=== PATIENT | male | born 1995 | race Caucasian/White ===

== ENCOUNTER 2017-07-12 16:11 | Outpatient (CLI) | payer OTHER | END 2017-07-12 16:12 | disposition home or self-care (01) | LOC: LABBT 16:11 | PROVIDERS: ATTEND Specialist | DX: Z01.818 Encounter for other preprocedural examination (principal); K40.20 Bilateral inguinal hernia, without obstruction or gangrene, not specified as recurrent ==

== ENCOUNTER 2017-07-14 09:42 | Day surgery (SDC) | payer OTHER ==
[2017-07-12 16:31] VITALS: BMI 29.5
--- NOTE | 2017-07-12 21:42 | HP ---
HISTORY OF PRESENT ILLNESS: A 21-year-old male patient who I saw on 06/18/2016 for bilateral inguin al hernias, recommended repair of them. Patient has membership, he goes gym. He has arranged [employer] to have these hernias repaired. He is worried exercising and working out in the interim. He de sires to repair this week. Plan is to repair these using mesh. He understands the risk of infectio n, bleeding, reoperation, recurrence of the hernia and understands the possibility of indurated cord structures due to the large nature of the hernias extending into the scrotum. He will need to wear a scrotal support and elevation postoperatively. He rides a motorcycle for transportation and real izes he will not be able to ride his motorcycle for a couple of weeks. 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 He understands the risks of infection, bleeding, reoperation, recurrence, and consents. TOBACCO: None. ALCOHOL: Rarely to none. MEDICATIONS: None routinely. PAST MEDICAL HISTORY: Noncontributory. PAST SURGICAL HISTORY: Noncontributory. REVIEW OF SYSTEMS: Ten point noncontributory. PHYSICAL EXAMINATION: VITAL SIGNS: A 232 pounds, 73 inches, 30 BMI, 138/80, 69, 99 degrees. HEENT: Unremarkable. LUNGS: Clear to auscultation. CARDIAC: Regular rate and rhythm without murmur or gallop. ABDOMEN: Soft, nontender. EXTREMITIES: Unremarkable. GENITOURINARY: Bilateral inguinal hernias, sliding into the scrotum. Testicles normal. ASSESSMENT AND PLAN: Bilateral scrotal hernias. We will plan repair using mesh. Risks and benefit s etc., discussed as explained above.
[2017-07-14] MEDS ORDERED: Bupivacaine 0.25% HCL 30 ML VIAL ONE ×2 (10:07→11:43)
[2017-07-14] MEDS ORDERED: Lidocaine 1% w/Epinephrine 1:200K 30 ML VIAL ONE (10:07)
[2017-07-14] MEDS ORDERED: Ketorolac Tromethamine 30 MG/ML VIAL ONE (10:19)
[2017-07-14] MEDS ORDERED: Midazolam HCl 2 mg/2 ml Vial ONE (10:50)
[2017-07-14] MEDS ORDERED: Fentanyl 100 MCG/2 ML VIAL ONE ×3 (11:16→14:12)
[2017-07-14] MEDS ORDERED: Glycopyrrolate 0.2 MG/ML 5 ML SYRINGE ONE (11:24)
[2017-07-14] MEDS ORDERED: Ondansetron HCl/PF 4 MG/2 ML Vial ONE (11:24)
[2017-07-14] MEDS ORDERED: Propofol 200 MG/20 ML VIAL ONE (11:24)
[2017-07-14] MEDS ORDERED: Metoclopramide HCl 10 MG/2 ML VIAL ONE (11:24)
[2017-07-14] MEDS ORDERED: Lidocaine 1% PF 5 ML VIAL ONE (11:24)
[2017-07-14] MEDS ORDERED: Dexamethasone 20 MG/5 ML VIAL ONE (11:24)
--- NOTE | 2017-07-14 14:12 | OP ---
DATE OF OPERATION: 07/14/2017 PREOPERATIVE DIAGNOSES: Bilateral inguinal hernia, sliding into the scrotum, left omentum into the scrotum. POSTOPERATIVE DIAGNOSIS: Bilateral inguinal hernia, sliding into the scrotum, left omentum into the scrotum. PROCEDURE: PHS mesh extended repair of bilateral inguinal hernias. SURGEON: Dr. Riley Ta ANESTHESIA: General. Local 0.25% Marcaine without epinephrine 60 mL mixed with 1% Xylocaine with e pinephrine, 30 mL. PROCEDURE IN DETAIL: The patient was taken to the operating room where under general anesthesia, ab zaragoza was clipped of hair, prepared with ChloraPrep, draped in routine fashion. Ioban was used. Lo kelsi anesthetic infiltrated into skin and subcutaneous tissue for ilioinguinal nerve block bilaterall y and along the line incision both right and left groins. Att[facility] then [facility] Incision made, carried down through the skin and subcutaneous tissue on the right to the exter nal oblique, incising it in the direction of its fibers to the external ring. The external oblique dissected free from the cord structures, retracted and cord structures dissected free and surrounded with a [place] drain. Cremasteric fibers taken down with the cautery. Cord structures identified and kept free of harm as the large hernia sac dissected free, dissected free from out the scrotum, o pened under direct visualization, highly ligated with a pursestring suture of 0 Nurolon and highly e xcised. The underlay portion of the PHS mesh the hernia sac stump was secured to the underlay porti on of the mesh with 0 Nurolon suture and the underlay portion of the mesh placed in the preperitonea l space. Onlay portion placed in the inguinal canal placing the extended portion superiorly and lozano d flatly. Inferiorly, the mesh secured to Jelani's ligament with interrupted sutures of 0 Nurolon. Laterally, the mesh was incised to the cylindrical connecting ring and a synthetic internal ring fa bricated approximating the mesh laterally to Poupart's ligament with interrupted suture of 0 Nurolon . Good hemostasis noted. External oblique closed with continuous suture of 3-0 Monocryl, Camper's fascia with 3-0 Monocryl, skin with continuous subcuticular suture of 4-0 Monocryl and local anesthe tic infiltrated skin and subcutaneous tissues below and above Camper's fascia, also infiltrating the inguinal canal. Good hemostasis noted. Dermal glue applied after skin approximated with subdermal 4-0 Monocryl. Attention was then turned to the left side were incision, dissection carried out as described for th e right. As I opened the hernia sac on the left there was a very large portion of omentum into a he rnia sac into the scrotum. This was removed and serially clamped and divided and ligated, the stump ligated with 2-0 silk ties reduced into the abdominal cavity. High ligation of the hernia site per formed with interrupted sutures of 0 Nurolon pursestring sutures securing these hernia sac stump to the underlay portion of the PHS mesh and placing the underlay portion of the PHS mesh in the preperi toneal space. Onlay portion placed in the inguinal canal superiorly, the extended portion extended flattened into the superior inguinal canal and inferiorly the onlay portion secured to Jelani's liga ment with 0 Nurolon suture and laterally the mesh incised to the cylindrical connecting ring a synth etic internal ring flap reapproximating the mesh laterally to Poupart's ligament. Good hemostasis n oted. As sponge and needle counts were correct and good hemostasis noted, external oblique closed w ith continuous suture of 3-0 Monocryl, Camper's fascia with continuous suture of 3-0 Monocryl, skin with continuous subcuticular suture of 4-0 Monocryl and local anesthetic infiltrated into the space of the inguinal canal and space above and below Camper's fascia and into the subcutaneous tissue. The patient tolerated the procedure well.
[2017-07-14] MEDS ORDERED: Morphine Sulfate 2 MG/ML SYRINGE ONE (14:13)
[2017-07-14] MEDS ORDERED: Promethazine HCl 25 MG/ML VIAL ONE (14:16)
== END 2017-07-14 15:00 | disposition home or self-care (01) ==
LOC: SDC 09:42
PROVIDERS: ATTEND Specialist
PROC: 0YUA0JZ Supplement Bilateral Inguinal Region with Synthetic Substitute, Open Approach (ICD-10-PCS; principal; 2017-07-14)
DX: K40.30 Unilateral inguinal hernia, with obstruction, without gangrene, not specified as recurrent (principal); K40.90 Unilateral inguinal hernia, without obstruction or gangrene, not specified as recurrent
CPT/HCPCS: 96374; 96375; C1781; J0131; J1100; J1170; J1885; J2001; J2250; J2270; J2405; J2550; J2704; J2765; J3010; S0020